=== PATIENT | male | born 1980 | race Caucasian/White ===

== ENCOUNTER 2017-03-17 18:16 | Emergency (ER) | payer OTHER, MEDICARE ==
[~2017-03-17] VITALS: Ht 170.2 cm; Wt 75.3 kg
[~2017-03-17 18:16] MED LIST: AMBIEN10 M1 PO; AMITRIPTYLINE100 M1 PO; AMOXICILLIN500 MG PO; BACTRIM DS 8001 TAB PO; CARVEDILOL12.5 M1 PO; CHLORTHALIDONE50 M1 PO; CRESTOR20 MG PO; DELTASONE20 MG PO; DULOXETINE HCL30 MG PO; FENTANYL1 EAC4 TOP; HYGROTON 25MG T25 MG PO; LAMOTRIGINE25 M3 PO; LAMOTRIGINE25 MG PO; OXYCODONE HCL5 M1 PO; PERCOCET 325 MG1 TA2 PO; PREDNISONE 20MG20 MG PO; WARFARIN SODIUM1 MG PO; ZOLPIDEM TARTRA10 MG PO
[2017-03-17 19:18] LABS: ABSOLUTE BASOPHIL COUNT 0 /CUMM (0.0-0.2); ABSOLUTE EOSINOPHIL COUNT 0.1 /CUMM (0.0-0.7); ABSOLUTE GRANULOCYTE CT 7.4 /CUMM (1.4-6.5); ABSOLUTE LYMPH COUNT 2.6 /CUMM (1.2-3.4); ABSOLUTE MONOCYTE COUNT 0.9 /CUMM (0.10-0.60); BASOPHIL % 0.3 % (0.0-2.0); GRANULOCYTE % 67.2 % (42.2-75.2); HEMATOCRIT 44.8 % (42-52); MEAN CORPUSCULAR HGB 30.2 PG (27.0-31.0); MEAN CORPUSCULAR HGB CONC 33.4 G/DL (33.0-37.0); MEAN CORPUSCULAR VOLUME 90.6 FL (80.0-94.0); MEAN PLATELET VOLUME 7.2 FL (7.4-10.4); PLATELET COUNT 316 /CUMM (130-400); RBC DISTRIBUTION WIDTH 13.3 % (11.5-14.5); RED BLOOD CELL CT 4.94 /CUMM (4.70-6.10)
--- NOTE | 2017-03-17 19:26 | ED GENERAL ADULT ---
History of Present Illness General Chief Complaint: Chest Pain Stated Complaint: CP Source: patient, family Exam Limitations: poor historian Vital Signs & Intake/Output Vital Signs & Intake/Output Vital Signs Date Time Temp Pulse Resp B/P B/P Pulse O2 O2 Flow FiO2 Mean Ox Delivery Rate 03/17 2249 97.1 96 18 148/88 98 03/17 2020 98 Room Air 03/17 1828 98.3 102 22 147/99 100 Room Air ED Intake and Output 03/18 0000 03/17 1200 Intake Total Output Total Balance Patient 166 lb Weight Weight Reported by Patient Measurement Method Allergies Coded Allergies: prochlorperazine (DYSTONIC RACTION 12/31/15) verapamil (PALPITATIONS 12/31/15) Reconcile Medications Carvedilol 12.5 MG TABLET 1 TAB PO DAILY BP (Reported) Chlorthalidone 50 MG TABLET 1 TAB PO DAILY FLUID RETENTION (Reported) Duloxetine HCl 30 MG CAPSULE.DR 1 CAP PO DAILY NERVE PAIN/MENTAL HEALTH ( Reported) Fentanyl 75 MCG/HOUR PATCH.TD72 1 PAT TOP Q72H PAIN (Reported) Lamotrigine 100 MG TABLET 1 TAB PO BID SEIZURES (Reported) Oxycodone HCl 5 MG TABLET 1 TAB PO DAILY PRN PAIN (Reported) Rivaroxaban (Xarelto) 20 MG TABLET 1 TAB PO DAILY BLOOD THINNER (Reported) with food Rosuvastatin Calcium (Crestor) 20 MG TABLET 1 TAB PO DAILY CHOLESTEROL ( Reported) Zolpidem Tartrate (Ambien) 10 MG TABLET 1 TAB PO QPM SLEEP (Reported) Triage Note: PT TO ED FOR MULTIPLE COMPLAINTS, STATING THREE DAYS AGO HE BECAME INCREASINGLY LETHARGIC, "HAD LOTS OF ABSENT SEIZURES", REPORTING HE "LOST THE ABILITY TO SPEAK TWO DAYS AGO AND WHEN I STAND I PUKE" PT REPORTING HE HAD A STROKE AT 28 AND HAS A "SEIZURE DISORDER". PT REPORTING HE HAS NOT SEEN A NEUROLOGIST IN APPROX 3 YEARS "BECAUSE IM IN PAIN MANAGEMENT". PT WAVERING BETWEEN CRYING HYSTERICALLY AND STUTTERING WORDS AND SPEAKING NORMALLY IN TRIAGE. PT REPORTING NO LASTING PHYSICAL DEFICITS FROM PREVIOUS STROKE. Triage Nurses Notes Reviewed? yes Onset: Gradual Duration: worse persistent since (3 days) Timing: recent history Injury Environment: home Severity: moderate Severity Numbers: 6 No Modifying Factors: none HPI: Patient is a 36-year-old male with history of CVA with residual seizure disorder on Lamictal presenting to the emergency department with chief complaint of 3 days worsening of left-sided chest pain that's been constant. Patient also reports increased seizure activity. Reports that he's been having several absence seizures daily. Prior to the past 3 days he's been having about 1 seizure a month. No recent change in medication dosing. He was switched from Coumadin to our requests approximately 7 months ago. Denies any fevers or chills. Also 3 days ago he reports that he had an episode of difficulty speaking and since then he's had word finding difficulties. Saw his primary care physician about one week ago prior to worsening onset of symptoms and he did not bring them up to the primary care physician. Patient denying any coughing. No recent congestion. Reports that he smokes medical marijuana daily to help with his chronic nausea. Has been dealing with nausea and vomiting daily for the past 8 years. Sees a technology teacher for this problem and he cannot seem to identify why patient is having these symptoms. Patient also taking daily antinausea medication which is not working. Over the past couple days he reports increased nausea and vomiting. Vomitus twice a day. No hemoptysis. Denies any recent travel. No recent antibiotic use. Denies any other drug use besides marijuana. He reports that the seizure-like activity lasts a few minutes and then resolves. Denies any associated urinary incontinence. Patient feels "locked in". Has not seen a neurologist in the past 3 years. Also reports that he's had increased fatigue over the past 3 days. Decreased by mouth intake. Denies any rashes or tick bites. (YESY SHEN) Past History Travel History Traveled to [place] past 21 day No Medical History Any Pertinent Medical History? see below for history Neurological: CVA, seizure, TIA, AUTONOMIC NERVOUS SYSTEM DAMAGE AUTONOMIC DYSFUNCTION EENT: "SWOLLEN THROAT" Cardiovascular: hypertension Respiratory: NONE Gastrointestinal: NONE Hepatic: FATTY LIVER Renal: chronic kidney disease Musculoskeletal: CHRONIC PAIN LOW BACK PAIN NECK PAIN Psychiatric: NONE Endocrine: NONE Blood Disorders: coagulopathy, DVT, CLOT BEHIND EYE ANTIPHOSP HYPERCOAGUABLE STATE Surgical History Surgical History: non-contributory Psychosocial History What is your primary language Nepalese Tobacco Use: Current Not Daily Daily Tobacco Use Amount/Type: => 5 Cigarettes daily ETOH Use: denies use Illicit Drug Use: marijuana Family History Hx Contributory? No (YESY SHEN) Review of Systems Review of Systems Constitutional: Reports: malaise. Comments Review of systems: See HPI, All other systems negative. Constitutional, no chills fever or weight loss HEENT: No visual changes no sore throat no congestion Cardiovascular: No palpitation , orthopnea or ankle swelling Skin, no jaundice no rashes Respiratory: No dyspnea cough sputum or hemoptysis GI: No diarrhea : No dysuria No hematuria Muscle skeletal: no back pain, no neck pain, Neurologic: No numbness , no headaches Psych: No stress anxiety or depression,. Heme/endocrine: No bruising no bleeding no polyuria or polydipsia Immunology: No splenectomy or history of AIDS (YESY SHEN) Physical Exam Physical Exam General Appearance: well developed/nourished, no apparent distress, alert, awake , comfortable Comments: Well-developed well-nourished person in no acute distress HEENT: extraocular motion intact, no nystagmus. Pupils equally round and reactive to light and accommodation. Conjunctivae slightly injected bilaterally. Pupils are approximately 3 mm bilaterally. Nose is atraumatic. External auditory canal and Tympanic membranes clear. Pharynx normal. No swelling or edema. Clearing secretions without difficulty. Neck: Supple, no lymphadenopathy, normal range of motion without pain or tenderness, no C-spine tenderness. Back: Nontender, no CVA tenderness. Full range of motion Cardiovascular: Regular rate and rhythms no murmurs rubs or gallops, normal JVP Respiratory: Chest nontender. No respiratory distress.breath sounds clear to auscultation bilaterally Abdomen: Soft, nontender nondistended, no appreciable organomegaly. Normal bowel sounds. No ascites, no rebound or guarding. Extremity: No edema, no calf tenderness to palpation, normal and equal pulses. Full range of motion of upper and lower extremities without difficulty or pain. Muscular strength is 5 out of 5 in upper and lower extremities. Neuro: Alert oriented x3, motor sensory normal, cranial nerves II through XII grossly intact. Patellar reflexes are 2+ bilaterally. Cerebellar testing is unremarkable. Skin: No appreciable rash on exposed skin, skin is warm and dry. Psych: Mood and affect is normal, forgetful. Core Measures ACS in differential dx? Yes CVA/TIA Diagnosis: No Severe Sepsis Present: No Septic Shock Present: No (PETER PA,YESY) Progress Differential Diagnoses I considered the following diagnoses in my evaluation of the patient: ACS, pulmonary embolism, TIA, CVA, electrolyte abnormality, gastroparesis, acid reflux, cyclical vomiting syndrome Plan of Care: Orders Procedure Date/time Status TROPONIN LEVEL 03/17 2230 Complete EKG 03/17 2230 Active Add-on Test (ER Only) 03/17 2100 Active Add-on Test (ER Only) 03/17 2027 Active Add-on Test (ER Only) 03/17 1927 Active Telemetry/Form Maker Plaster 03/17 1927 Active URINE DRUG SCREEN FOR ER ONLY 03/17 1927 Complete URINALYSIS 03/17 1927 Complete TSH REFLEX 03/17 1838 Complete D-DIMER 03/17 1838 Complete TROPONIN LEVEL 03/17 1831 Complete COMPREHENSIVE METABOLIC PANEL 03/17 1831 Complete CBC WITHOUT DIFFERENTIAL 03/17 1831 Complete EKG 03/17 1817 Active Laboratory Tests 03/17/17 2245: Troponin I < 0.01 03/17/17 2017: Urine Opiates Screen < 100.00, Methadone Screen < 40, Barbiturate Screen < 60, Ur Phencyclidine Scrn < 6.00, Amphetamines Screen < 100, U Benzodiazepines Scrn < 85, Urine Cocaine Screen < 50, Urine Cannabis Screen > 80.00 H, Urinalysis LIGHT H, Urine Color YEL, Urine Clarity HAZY H, Urine pH 6.5, Ur Specific [place] 1.015, Urine Protein 30 H, Urine Ketones NEG, Urine Nitrite NEG, Urine Bilirubin NEG, Urine Urobilinogen 1.0, Ur Leukocyte Esterase TRACE H, Ur Microscopic SEDIMENT EXAMINED, Urine RBC RARE, Urine WBC 3-5 H, Ur Epithelial Cells RARE, Urine Bacteria FEW H, Urine Mucus MOD H, Urine Hemoglobin TRACE- INTACT H, Urine Glucose NEG 03/17/171837: Anion Gap 16, Estimated GFR > 60, BUN/Creatinine Ratio 11.5, Glucose 107 H, Calcium 10.6 H, Total Bilirubin 0.8, AST 30, ALT 37, Alkaline Phosphatase 63, Troponin I < 0.01, Total Protein 8.0, Albumin 5.1 H, Globulin 2.9, Albumin/ Globulin Ratio 1.8, TSH &T3 &Free T4 Intrp 1.520, D-Dimer High Sensitivty < 200, CBC w Diff NO MAN DIFF REQ, RBC 4.94, MCV 90.6, MCH 30.2, RDW 13.3, MPV 7.2 L, Gran % 67.2, Lymphocytes % 23.7, Monocytes % 7.8, Eosinophils % 1.0, Basophils % 0.3, Absolute Granulocytes 7.4 H, Absolute Lymphocytes 2.6, Absolute Monocytes 0.9 H, Absolute Eosinophils 0.1, Absolute Basophils 0, PUBS MCHC 33.4 Diagnostic Imaging: Viewed by Me: Radiology Read. Discussed w/RAD: Radiology Read. Radiology Impression: PATIENT: MURTAZA DELGADO JR PRESENT AGE: 36 PATIENT ACCOUNT NO: [id number] : 78 LOCATION: [facility] ORDERING PHYSICIAN: YESY FONTANA SERVICE DATE: 03/17/17 EXAM TYPE: RAD - XRY-CHEST XRAY, PA AND LATERAL EXAMINATION: XR CHEST CLINICAL INFORMATION: Chest pain COMPARISON: 05/29/2008 TECHNIQUE: 2 views of the chest were obtained. FINDINGS: The lungs are well expanded. There is no focal consolidation, edema, or effusion. No pneumothorax. The cardiomediastinal silhouette is within normal limits. No acute osseous abnormality. IMPRESSION: No acute pulmonary findings. DICTATED BY: LEON KNOX MD DATE/TIME DICTATED: 03/17/172027 MUSICAL THERAPIST:MAGGIE DATE/TIME TRANSCRIBED:03/17/172027 CONFIDENTIAL, DO NOT COPY WITHOUT APPROPRIATE AUTHORIZATION. <Electronically signed in Other Vendor System> SIGNED BY: LEON KNOX MD 03/17/172033 Initial ED EKG: NSR Repeat EKG: unchanged Comments: Patient medicated with IV hydration here in the emergency department. He was informed of all lab work results and imaging study results. Patient reports that he has been asymptomatic since being in the emergency department. No seizure-like activity witnessed. No change on the panel monitor. He was given neurology to follow up with. He'll continue taking daily medications. Patient nontoxic. Discussed with Dr. Batista and he agrees to plan. Second troponin is negative. Unclear etiology of symptoms as patient complaining about a multitude of different symptoms. They all seem to be chronic in nature as patient reports he's had these symptoms for the past several years worse in the past several days. D-DIMER NEGATIVE. (PETER YESY FONTANA) Departure Departure Time of Disposition: 2324 Disposition: HOME OR SELF CARE Condition: Stable Clinical Impression Primary Impression: Chest pain Qualifiers: Chest pain type: unspecified Qualified Code: R07.9 - Chest pain, unspecified Secondary Impressions: Fatigue Qualifiers: Fatigue type: unspecified Qualified Code: R53.83 - Other fatigue Referrals: URBANO DE JESUS,NIDHI JOHNSON MD,JOE WYNN MD,LETICIA Espinoza (PCP/Family) Additional Instructions: FOLLOW UP WITH PCP. ALSO FOLLOW UP WITH NEUROLOGY REGARDING SEIZURES. RETURN FOR WORSNEING SYMPTOMS OR CONCERNS. TAKE ALL MEDICAITONS PRESCRIBED. Departure Forms: Customer Survey General Discharge Information (YESY SHEN) PA/LAB COORDINATOR Co-Sign Statement Statement: ED Attending supervision documentation- [X] I saw and evaluated the patient. I have also reviewed all the pertinent lab results and diagnostic results. I agree with the findings and the plan of care as documented in the PA's/LAB COORDINATOR's documentation. [] I have reviewed the ED Record and agree with the PA's/LAB COORDINATOR's documentation. [] Additions or exceptions (if any) to the PAs/LAB COORDINATOR's note and plan are summarized below: [] (TRISTIAN JONES DO) Critical Care Note Critical Care Note Critical Care Time: non-applicable (YESY SHEN)
[2017-03-17] MEDS ORDERED: LAMOTRIGINE100 M2 PO (19:52)
[2017-03-17] MEDS ORDERED: XARELTO20 M2 PO (19:53)
[2017-03-17] MEDS ORDERED: OXYCODONE HCL5 M1 PO (19:53)
[2017-03-17] MEDS ORDERED: CRESTOR20 M2 PO (19:53)
--- NOTE | 2017-03-17 19:59 | CT SCAN REPORT ---
EXAMINATION: CT HEAD WITHOUT CONTRAST CLINICAL INFORMATION: Slurred speech at times. COMPARISON: Head CT 06/24/2015. TECHNIQUE: Contiguous axial imaging was performed from the skull base to vertex without intravenous administration of contrast. FINDINGS: No dense cerebral artery sign. There is no intracranial hemorrhage, hydrocephalus, extra-axial surface collection, midline shift, or other herniation pattern. Cruz to white matter differentiation is diffusely maintained without evidence of an evolved acute territorial infarct. The basilar cisterns are preserved. No significant soft tissue abnormality. No acute osseous abnormality. The paranasal sinuses and the mastoid air cells are well-aerated. IMPRESSION: No acute intracranial abnormality.
--- NOTE | 2017-03-17 20:34 | RADIOLOGY REPORT ---
EXAMINATION: XR CHEST CLINICAL INFORMATION: Chest pain COMPARISON: 05/29/2008 TECHNIQUE: 2 views of the chest were obtained. FINDINGS: The lungs are well expanded. There is no focal consolidation, edema, or effusion. No pneumothorax. The cardiomediastinal silhouette is within normal limits. No acute osseous abnormality. IMPRESSION: No acute pulmonary findings.
[2017-03-17 22:49] VITALS: BP 148/88
== END 2017-03-17 23:32 ==
LOC: ERH 18:16
PROVIDERS: Emergency Medicine
DX: R07.9 Chest pain, unspecified (principal); R53.83 Other fatigue
CPT/HCPCS: 80299; 80307; 81001; 93005; 93010; 96360